=== PATIENT | male | born 1955 | race Caucasian/White ===

== ENCOUNTER 2018-03-01 18:15 | Emergency (ER) | payer OTHER ==
[2018-03-01 18:33] VITALS: BP 117/90
--- NOTE | 2018-03-01 18:58 | EDPHY ---
H & P Time Seen by Provider: 03/01/18 18:37 HPI/ROS: CHIEF COMPLAINT: Possible suicidal ideation HISTORY OF PRESENT ILLNESS: 62-year-old male history of multiple sclerosis, on hospice, arrives with family members who describes that earlier today they had misinterpreted a shopping list written by the patient as possible suicidal ideation. Per the patient and , he had written a shopping list of things that he wanted his to get from the store which included, among other things , hydrogen peroxide and saline. The was confused upon seeing this, presented this to the hospice nurse who recommend he go to the ER for possible suicidal ideation. Patient states, and this is confirmed by the , that these were supplies that he would like to get to expedite his dehydration process but that in no way is experiencing suicidal ideation. Denies homicidal ideation. PHYSICAL EXAM (Prior to examination, patient consented to physical exam, hands were washed and my usual and customary physical exam procedures followed) 1) GENERAL: Well-developed, well-nourished, alert and oriented. Appears to be in no acute distress. 2) HEAD: Normocephalic 3) HEENT: sclera anicteric 4) LUNGS: Breathing comfortably. Smoking Status: Never smoked Constitutional: Initial Vital Signs Temperature (C) 36.7 C 03/01/18 18:28 Heart Rate 90 03/01/18 18:28 Respiratory Rate 16 03/01/18 18:28 Blood Pressure 117/90 H 03/01/18 18:28 O2 Sat (%) 97 03/01/18 18:28 O2 Delivery Mode Room Air Allergies/Adverse Reactions: iodine Allergy (Verified 03/01/18 18:28) methylprednisolone Allergy (Verified 03/01/18 18:34) Home Medications: Medication Instructions Recorded Effexor Xr 03/01/18 MDM/Departure - MDM ED Course/Re-evaluation: 7:00 p.m.: This patient does not endorse suicidal or homicidal ideation, I do not think he is gravely disabled, he is mentating clearly. I Believe him to have decision-making capacity at this time. At this time I do not think he meets criteria for an M1 hold. I had a lengthy discussion with the patient, his family members and they are in agreement that they do not feel he presents an imminent danger to himself, others or that he is gravely disabled. This all appears to be a misunderstanding and miscommunication between the family and the hospice agency. The patient and family would like to return home. They will be discharged from the ER. I saw this patient independently based on established practice protocols. Care of patient under supervision of secondary supervising physician Dr Fairbanks . - Depart Disposition: Home, Routine, Self-Care Clinical Impression: Multiple sclerosis Condition: Good Instructions: Multiple Sclerosis (DC) Referrals: Jeffrey Arshad PA [Primary Care Provider] - 1-2 days without fail
--- NOTE | 2018-03-02 09:36 | ASMTCMCOM ---
CM Note CM Note Notes: Late Entry from 03/01/18: CM requested to provide pt and his family with home healthcare resources; skilled and non-skilled lists provided. Pt and family also requesting information on medical body donation options; information on [facility], [facility] and [facility] programs provided. Pt is agreeable to being discharged from hospice; hospice staff present in the ED and aware. Pt to discharge home from the ED with his and daughter. CM available for further assistance if needed. Date Signed: 03/02/2018 09:35 AM Electronically Signed By:Glenda Workman RN
== END 2018-03-01 19:15 | disposition home or self-care (01) ==
DX: G35 Multiple sclerosis (principal)